=== PATIENT | male | born 1975 | race Two or more races ===

== ENCOUNTER 2020-10-18 18:17 | Inpatient (IN) | payer OTHER ==
[2020-10-18 19:18] LABS: BASO % 2.3 % (0-2.0); EOS % 0.1 % (0-4.5); HEMOGLOBIN 15.4 GM/dl (11.7-16.9); LYMPH % 10.8 % (8-40); MCHC 32.9 g/dl (32.0-35.9); MEAN CELL VOLUME 85.2 fl (80-96); MEAN PLT VOLUME 8.3 fl (7.5-11.1); MONO % 6.6 % (3.8-10.2); NEUT % 80.2 % (42.8-82.8); PLATELET COUNT 356 K/MM3 (134-434); RBC 5.51 M/mm3 (4.00-5.60); RDW 12.8 % (11.9-15.9); WHITE BLOOD COUNT 10.3 K/mm3 (4.0-10.8)
[2020-10-18] MEDS ORDERED: ACETAMINOPHEN 500 MG TABLET (FP) PO ONE (19:30)
[2020-10-18 19:32] LABS: ACTIVATED PTT 22.8 SECONDS (25.2-36.5)
[2020-10-18] MEDS ORDERED: ACETAMINOPHEN INJECTION 100 ML IVPB ONE (19:32)
[2020-10-18 19:36] LABS: INR 1.27 (0.82-1.09)
[2020-10-18 19:37] LABS: ALBUMIN 2.9 g/dl (3.4-5.0); ALK PHOS 100 U/L (45-117); ANION GAP 11 MMOL/L (8-16); BILIRUBIN,DIRECT 0.2 mg/dL (0.0-0.2); BILIRUBIN,TOTAL 1.1 mg/dl (0.2-1); CALCIUM 8.5 mg/dl (8.5-10); CHLORIDE 96 mmol/L (98-107); CO2 21 mmol/L (21-32); CREATININE 0.8 mg/dl (0.55-1.3); LDH 373 U/L (84-246); SGOT/AST 66 U/L (15-37); SGPT/ALT 117 U/L (13-61); SODIUM 128 mmol/L (136-145); TOT PROT 7.2 g/dl (6.4-8.2)
[2020-10-18 19:39] LABS: GLUCOSE,RANDOM 322 mg/dl (74-106)
[2020-10-18] MEDS ORDERED: INSULIN REGULAR HUMAN 100 UNITS/ML *VIAL IVPUSH ONE (19:39)
[2020-10-18] MEDS ORDERED: DEXAMETHASONE SOD PHOSPHATE 10 MG/1 ML VIAL IVPUSH ONE (19:46)
[2020-10-18] MEDS ORDERED: DEXAMETHASONE SOD PHOSPHATE 10 MG/1 ML VIAL ONE (19:58)
[2020-10-18] MEDS ORDERED: INSULIN REGULAR HUMAN 100 UNITS/ML *VIAL ONE (19:58)
[2020-10-18 20:45] LABS: VENOUS BASE EXCESS -3.3 mmol/L (-2-2); VENOUS O2 SATURATION 73.1 % (70-80); VENOUS PCO2 32.2 mmHg (38-52); VENOUS PH 7.415 (7.310-7.410)
[2020-10-18] MEDS ORDERED: SODIUM CHLORIDE 500 ML IV STA (23:09)
[2020-10-18 23:33] LABS: ARTERIAL BLD GAS O2 SATURATION 96.4 mmHg (95-98); ARTERIAL BLOOD GAS BASE EXCESS -4.1 mmol/L (-2-2); ARTERIAL BLOOD GAS pH 7.437 (7.350-7.450)
[2020-10-18 23:34] LABS: ALLENS TEST POSITIVE
[2020-10-19] MEDS: ENOXAPARIN NA (PORCINE) 40 MG/0.4 ML DISP.SYRIN SQ SCH ×3 (00:32→22:45)
[2020-10-19] MEDS ORDERED: MELATONIN 5 MG TABLETS PO ONE (01:01)
[2020-10-19] MEDS ORDERED: ALBUTEROL SO4 HFA INHALER IH PRN (01:59)
[2020-10-19] MEDS ORDERED: ACETAMINOPHEN 325 MG TABLET (FP) PO PRN (02:10)
[2020-10-19] MEDS: INSULIN SLIDING SCALE (NOVOLOG) 1 VIAL SQ SCH ×4 (07:27→22:56)
[2020-10-19 07:46] LABS: BASO % 0.2 % (0-2.0); HEMATOCRIT 42.6 % (35.4-49); HEMOGLOBIN 14.4 GM/dL (11.7-16.9); LYMPH % 9.8 % (8-40); MCH 28.1 pg (25.7-33.7); MCHC 33.8 g/dl (32.0-35.9); MEAN CELL VOLUME 83.2 fl (80-96); MEAN PLT VOLUME 7.8 fl (7.5-11.1); MONO % 4.8 % (3.8-10.2); NEUT % 85.2 % (42.8-82.8); PLATELET COUNT 314 K/MM3 (134-434); RBC 5.12 M/mm3 (4.00-5.60); RDW 13.3 % (11.9-15.9); WHITE BLOOD COUNT 8.8 K/mm3 (4.0-10.0)
[2020-10-19 07:59] LABS: CHLORIDE 101 mmol/L (98-107); POTASSIUM 5.2 mmol/L (3.5-5.1); SODIUM 135 mmol/L (136-145)
[2020-10-19 08:17] LABS: ALBUMIN 2.5 g/dl (3.4-5.0); ANION GAP 11 MMOL/L (8-16); CALCIUM 8.6 mg/dL (8.5-10.1); CO2 24 mmol/L (21-32)
[2020-10-19 08:18] LABS: BLOOD UREA NITROGEN 14.1 mg/dL (7-18); GLUCOSE,RANDOM 256 mg/dL (74-106); MAGNESIUM 2.5 mg/dL (1.8-2.4)
[2020-10-19 08:20] LABS: BILIRUBIN,TOTAL 0.9 mg/dL (0.2-1); CHOLESTEROL 183 mg/dL (50-200); TRIGLYCERIDES 174 mg/dL (0-150)
[2020-10-19 08:21] LABS: ALK PHOS 99 U/L (45-117); CREATININE 0.8 mg/dL (0.55-1.3); HDL CHOLESTEROL 21 mg/dL (40-60); LDH 338 U/L (87-246); LDL CHOLESTEROL (ONLY SJRH) 138 mg/dL (5-100); SGOT/AST 53 U/L (15-37); SGPT/ALT 119 U/L (13-61)
[2020-10-19 08:22] LABS: TOT PROT 7.1 g/dl (6.4-8.2)
[2020-10-19] MEDS ORDERED: DEXTROSE 5%-WATER - 50 ML IVPB ONE (09:00)
[2020-10-19] MEDS ORDERED: cefTRIAXone SODIUM 1 GM VIAL ONE (09:00)
[2020-10-19] MEDS: DEXAMETHASONE SOD PHOSPHATE 4 MG/1 ML VIAL IVPUSH SCH (09:58)
[2020-10-19] MEDS: AZITHROMYCIN IVPB 500 MG/250 ML BAG IVPB SCH (09:59)
[2020-10-19] MEDS: CEFTRIAXONE 1 GM in DEXTROSE 5%-WATER - 50 ML IVPB SCH (10:01)
[2020-10-19] MEDS: ZINC SULFATE 220 MG CAPSULE (FP) PO SCH (10:02)
[2020-10-19] MEDS: ASCORBIC ACID 500 MG TABLET (FP) PO SCH ×2 (10:02→22:45)
[2020-10-19] MEDS: FAMOTIDINE 20 MG TABLET PO SCH ×2 (10:02→22:45)
[2020-10-19 11:32] VITALS: BMI 37.8
[2020-10-19] MEDS: MUPIROCIN 2% TOPICAL OINTMENT FOR DECOLONIZATION NS SCH ×2 (12:04→22:42)
[2020-10-19] MEDS ORDERED: REMDESIVIR 200 MG in SODIUM CHLORIDE 210 ML IVPB ONE (13:00)
[2020-10-19] MEDS ORDERED: PT OWN MED DRAWER 7, Y5N ONE ×2 (13:07→22:44)
[2020-10-19] MEDS: CHLORHEXIDINE GLUCONATE 4% CLEANSER FOR DECOLONIZATION TP SCH (22:42)
[2020-10-20] MEDS: INSULIN SLIDING SCALE (NOVOLOG) 1 VIAL SQ SCH ×4 (06:46→21:36)
[2020-10-20] MEDS ORDERED: cefTRIAXone SODIUM 1 GM VIAL ONE (09:45)
[2020-10-20] MEDS ORDERED: DEXTROSE 5%-WATER - 50 ML IVPB ONE (09:45)
[2020-10-20] MEDS: MUPIROCIN 2% TOPICAL OINTMENT FOR DECOLONIZATION NS SCH ×2 (09:57→21:37)
[2020-10-20] MEDS: FAMOTIDINE 20 MG TABLET PO SCH ×2 (10:20→21:36)
[2020-10-20] MEDS: ZINC SULFATE 220 MG CAPSULE (FP) PO SCH (10:20)
[2020-10-20] MEDS: DEXAMETHASONE SOD PHOSPHATE 4 MG/1 ML VIAL IVPUSH SCH (10:20)
[2020-10-20] MEDS: ENOXAPARIN NA (PORCINE) 40 MG/0.4 ML DISP.SYRIN SQ SCH ×2 (10:20→21:35)
[2020-10-20] MEDS: CEFTRIAXONE 1 GM in DEXTROSE 5%-WATER - 50 ML IVPB SCH (10:20)
[2020-10-20] MEDS: ASCORBIC ACID 500 MG TABLET (FP) PO SCH ×2 (10:20→21:36)
[2020-10-20] MEDS: AZITHROMYCIN IVPB 500 MG/250 ML BAG IVPB SCH (10:21)
[2020-10-20] MEDS: CHOLECALCIFEROL (VIT D3) 1,000 UNIT (25 MCG) TABLET PO SCH (10:21)
[2020-10-20 11:40] LABS: BASO % 0.3 % (0-2.0); EOS % 0.1 % (0-4.5); HEMATOCRIT 40.8 % (35.4-49); HEMOGLOBIN 13.3 GM/dL (11.7-16.9); LYMPH % 8.5 % (8-40); MCH 27.4 pg (25.7-33.7); MCHC 32.5 g/dl (32.0-35.9); MEAN CELL VOLUME 84.1 fl (80-96); MONO % 6.3 % (3.8-10.2); NEUT % 84.8 % (42.8-82.8); PLATELET COUNT 355 K/MM3 (134-434); RBC 4.85 M/mm3 (4.00-5.60); RDW 13.5 % (11.9-15.9); WHITE BLOOD COUNT 11.5 K/mm3 (4.0-10.0)
[2020-10-20 12:04] LABS: POTASSIUM 4.4 mmol/L (3.5-5.1)
[2020-10-20 12:06] LABS: CALCIUM 8.4 mg/dL (8.5-10.1)
[2020-10-20 12:07] LABS: ALBUMIN 2.4 g/dl (3.4-5.0); MAGNESIUM 2.3 mg/dL (1.8-2.4)
[2020-10-20 12:10] LABS: CREATININE 0.8 mg/dL (0.55-1.3); PHOSPHOROUS 2.6 mg/dL (2.5-4.9)
[2020-10-20 12:11] LABS: BILIRUBIN,TOTAL 0.6 mg/dL (0.2-1); TOT PROT 6.6 g/dl (6.4-8.2)
[2020-10-20] MEDS ORDERED: PT OWN MED DRAWER 7, Y5N ONE (12:59)
[2020-10-20] MEDS: REMDESIVIR 100 MG in SODIUM CHLORIDE 230 ML IVPB SCH (13:13)
[2020-10-20] MEDS: CHLORHEXIDINE GLUCONATE 4% CLEANSER FOR DECOLONIZATION TP SCH (21:36)
[2020-10-20] MEDS: INSULIN (LEVEMIR) 100 UNITS/ML UNITS SQ SCH (21:36)
[2020-10-21] MEDS: INSULIN SLIDING SCALE (NOVOLOG) 1 VIAL SQ SCH ×4 (06:40→22:36)
[2020-10-21 06:47] LABS: BASO % 0.3 % (0-2.0); EOS % 0.1 % (0-4.5); HEMATOCRIT 41.1 % (35.4-49); HEMOGLOBIN 13.7 GM/dL (11.7-16.9); LYMPH % 14.9 % (8-40); MCH 27.8 pg (25.7-33.7); MCHC 33.2 g/dl (32.0-35.9); MEAN CELL VOLUME 83.7 fl (80-96); MEAN PLT VOLUME 7.6 fl (7.5-11.1); MONO % 8.3 % (3.8-10.2); NEUT % 76.4 % (42.8-82.8); PLATELET COUNT 374 K/MM3 (134-434); RBC 4.91 M/mm3 (4.00-5.60); RDW 13.5 % (11.9-15.9); WHITE BLOOD COUNT 8.9 K/mm3 (4.0-10.0)
[2020-10-21 07:20] LABS: POTASSIUM 4.7 mmol/L (3.5-5.1)
[2020-10-21 07:22] LABS: ALBUMIN 2.4 g/dl (3.4-5.0); CALCIUM 8.1 mg/dL (8.5-10.1)
[2020-10-21 07:23] LABS: BLOOD UREA NITROGEN 21.7 mg/dL (7-18); MAGNESIUM 2.3 mg/dL (1.8-2.4)
[2020-10-21 07:25] LABS: CREATININE 0.8 mg/dL (0.55-1.3)
[2020-10-21 07:27] LABS: BILIRUBIN,TOTAL 0.6 mg/dL (0.2-1); TOT PROT 6.6 g/dl (6.4-8.2)
[2020-10-21 07:46] LABS: ERYTHROCYTE SEDIMENTATION RATE 70 mm/hr (0-10)
[2020-10-21] MEDS ORDERED: cefTRIAXone SODIUM 1 GM VIAL ONE (09:29)
[2020-10-21] MEDS ORDERED: DEXTROSE 5%-WATER - 50 ML IVPB ONE (09:29)
[2020-10-21] MEDS: MUPIROCIN 2% TOPICAL OINTMENT FOR DECOLONIZATION NS SCH ×2 (09:42→22:00)
[2020-10-21] MEDS: DEXAMETHASONE SOD PHOSPHATE 4 MG/1 ML VIAL IVPUSH SCH (09:44)
[2020-10-21] MEDS: ZINC SULFATE 220 MG CAPSULE (FP) PO SCH (09:45)
[2020-10-21] MEDS: ENOXAPARIN NA (PORCINE) 40 MG/0.4 ML DISP.SYRIN SQ SCH ×2 (09:45→22:05)
[2020-10-21] MEDS: CEFTRIAXONE 1 GM in DEXTROSE 5%-WATER - 50 ML IVPB SCH (09:46)
[2020-10-21] MEDS: FAMOTIDINE 20 MG TABLET PO SCH ×2 (09:46→22:06)
[2020-10-21] MEDS: CHOLECALCIFEROL (VIT D3) 1,000 UNIT (25 MCG) TABLET PO SCH (09:48)
[2020-10-21] MEDS: ASCORBIC ACID 500 MG TABLET (FP) PO SCH ×2 (09:48→22:06)
[2020-10-21] MEDS: AZITHROMYCIN IVPB 500 MG/250 ML BAG IVPB SCH (09:49)
[2020-10-21] MEDS ORDERED: PT OWN MED DRAWER 7, Y5N ONE (12:27)
[2020-10-21] MEDS: REMDESIVIR 100 MG in SODIUM CHLORIDE 230 ML IVPB SCH (14:22)
[2020-10-21] MEDS ORDERED: INSULIN (NOVOLOG) ASPART 100 UNITS/ML 10ML VIAL ONE (21:58)
[2020-10-21] MEDS: CHLORHEXIDINE GLUCONATE 4% CLEANSER FOR DECOLONIZATION TP SCH (22:00)
[2020-10-21] MEDS: INSULIN (LEVEMIR) 100 UNITS/ML UNITS SQ SCH (22:06)
[2020-10-22] MEDS ORDERED: INSULIN (LEVEMIR) 100 UNITS/ML UNITS SQ ONE ×2 (00:27→23:45)
[2020-10-22] MEDS: INSULIN SLIDING SCALE (NOVOLOG) 1 VIAL SQ SCH ×4 (06:28→23:06)
[2020-10-22 07:58] LABS: BASO % 0.3 % (0-2.0); EOS % 0.1 % (0-4.5); HEMATOCRIT 41.7 % (35.4-49); HEMOGLOBIN 13.9 GM/dL (11.7-16.9); LYMPH % 19.9 % (8-40); MCH 27.9 pg (25.7-33.7); MCHC 33.3 g/dl (32.0-35.9); MEAN CELL VOLUME 83.7 fl (80-96); MEAN PLT VOLUME 7.7 fl (7.5-11.1); MONO % 6.6 % (3.8-10.2); NEUT % 73.1 % (42.8-82.8); PLATELET COUNT 353 K/MM3 (134-434); RBC 4.98 M/mm3 (4.00-5.60); RDW 13.6 % (11.9-15.9); WHITE BLOOD COUNT 9.1 K/mm3 (4.0-10.0)
[2020-10-22 08:19] LABS: POTASSIUM 4.3 mmol/L (3.5-5.1)
[2020-10-22 08:25] LABS: ALBUMIN 2.5 g/dl (3.4-5.0); CALCIUM 8.4 mg/dL (8.5-10.1)
[2020-10-22 08:26] LABS: MAGNESIUM 2.3 mg/dL (1.8-2.4)
[2020-10-22 08:28] LABS: BILIRUBIN,DIRECT 0.2 mg/dL (0.0-0.2); CREATININE 0.8 mg/dL (0.55-1.3)
[2020-10-22 08:30] LABS: BILIRUBIN,TOTAL 0.6 mg/dL (0.2-1); TOT PROT 6.5 g/dl (6.4-8.2)
[2020-10-22] MEDS ORDERED: DEXTROSE 5%-WATER - 50 ML IVPB ONE (09:05)
[2020-10-22] MEDS ORDERED: cefTRIAXone SODIUM 1 GM VIAL ONE (09:05)
[2020-10-22] MEDS: ZINC SULFATE 220 MG CAPSULE (FP) PO SCH (09:55)
[2020-10-22] MEDS: CEFTRIAXONE 1 GM in DEXTROSE 5%-WATER - 50 ML IVPB SCH (09:55)
[2020-10-22] MEDS: INSULIN (LEVEMIR) 100 UNITS/ML UNITS SQ SCH ×2 (09:55→23:07)
[2020-10-22] MEDS: DEXAMETHASONE SOD PHOSPHATE 4 MG/1 ML VIAL IVPUSH SCH (09:55)
[2020-10-22] MEDS: CHOLECALCIFEROL (VIT D3) 1,000 UNIT (25 MCG) TABLET PO SCH (09:55)
[2020-10-22] MEDS: ASCORBIC ACID 500 MG TABLET (FP) PO SCH ×2 (09:55→22:19)
[2020-10-22] MEDS: FAMOTIDINE 20 MG TABLET PO SCH ×2 (09:55→22:19)
[2020-10-22] MEDS ORDERED: ENOXAPARIN NA (PORCINE) 60 MG/0.6 ML DISP.SYRIN SQ SCH (10:00)
[2020-10-22] MEDS: MUPIROCIN 2% TOPICAL OINTMENT FOR DECOLONIZATION NS SCH (10:03)
[2020-10-22] MEDS ORDERED: PT OWN MED DRAWER 7, Y5N ONE ×2 (11:36→22:13)
[2020-10-22] MEDS: ENOXAPARIN NA (PORCINE) 120 MG/0.8 ML DISP.SYRIN SQ SCH ×2 (11:49→22:18)
[2020-10-22] MEDS: REMDESIVIR 100 MG in SODIUM CHLORIDE 230 ML IVPB SCH (14:39)
[2020-10-22] MEDS ORDERED: ACETAMINOPHEN 325 MG TABLET (FP) PO PRN (15:14)
[2020-10-22] MEDS ORDERED: ALBUTEROL SO4 HFA INHALER IH PRN (15:14)
[2020-10-22] MEDS ORDERED: INSULIN (LEVEMIR) 100 UNITS/ML UNITS SQ SCH (22:00)
[2020-10-22] MEDS ORDERED: MUPIROCIN 2% TOPICAL OINTMENT FOR DECOLONIZATION NS SCH (22:00)
[2020-10-22] MEDS ORDERED: CHLORHEXIDINE GLUCONATE 4% CLEANSER FOR DECOLONIZATION TP SCH (22:00)
[2020-10-23 07:00] LABS: BASO % 0.3 % (0-2.0); EOS % 0.2 % (0-4.5); HEMATOCRIT 41.7 % (35.4-49); HEMOGLOBIN 13.9 GM/dL (11.7-16.9); MCH 28.1 pg (25.7-33.7); MCHC 33.3 g/dl (32.0-35.9); MEAN CELL VOLUME 84.2 fl (80-96); MEAN PLT VOLUME 7.8 fl (7.5-11.1); MONO % 5.3 % (3.8-10.2); NEUT % 66.2 % (42.8-82.8); PLATELET COUNT 331 K/MM3 (134-434); RBC 4.96 M/mm3 (4.00-5.60); RDW 13.6 % (11.9-15.9); WHITE BLOOD COUNT 9.6 K/mm3 (4.0-10.0)
[2020-10-23 07:23] LABS: POTASSIUM 4.2 mmol/L (3.5-5.1)
[2020-10-23] MEDS: INSULIN SLIDING SCALE (NOVOLOG) 1 VIAL SQ SCH ×2 (07:24→12:05)
[2020-10-23 07:46] LABS: CALCIUM 8.5 mg/dL (8.5-10.1)
[2020-10-23 07:47] LABS: ALBUMIN 2.6 g/dl (3.4-5.0); BLOOD UREA NITROGEN 22.5 mg/dL (7-18); MAGNESIUM 2.3 mg/dL (1.8-2.4)
[2020-10-23 07:50] LABS: CREATININE 0.7 mg/dL (0.55-1.3); PHOSPHOROUS 4.2 mg/dL (2.5-4.9)
[2020-10-23 07:51] LABS: BILIRUBIN,TOTAL 0.6 mg/dL (0.2-1); TOT PROT 6.4 g/dl (6.4-8.2)
[2020-10-23] MEDS ORDERED: DEXTROSE 5%-WATER - 50 ML IVPB ONE (08:49)
[2020-10-23] MEDS ORDERED: cefTRIAXone SODIUM 1 GM VIAL ONE (08:49)
[2020-10-23 08:59] LABS: ERYTHROCYTE SEDIMENTATION RATE 46 mm/hr (0-10)
[2020-10-23] MEDS ORDERED: INSULIN (LEVEMIR) 100 UNITS/ML UNITS SQ SCH (10:00)
[2020-10-23] MEDS ORDERED: DEXAMETHASONE SOD PHOSPHATE 4 MG/1 ML VIAL IVPUSH SCH (10:00)
[2020-10-23] MEDS ORDERED: ZINC SULFATE 220 MG CAPSULE (FP) PO SCH (10:00)
[2020-10-23] MEDS ORDERED: CEFTRIAXONE 1 GM in DEXTROSE 5%-WATER - 50 ML IVPB SCH (10:00)
[2020-10-23] MEDS: CHOLECALCIFEROL (VIT D3) 1,000 UNIT (25 MCG) TABLET PO SCH (10:21)
[2020-10-23] MEDS: FAMOTIDINE 20 MG TABLET PO SCH (10:21)
[2020-10-23] MEDS: ASCORBIC ACID 500 MG TABLET (FP) PO SCH (10:21)
[2020-10-23] MEDS ORDERED: PT OWN MED DRAWER 7, Y5N ONE (11:56)
[2020-10-23] MEDS: ENOXAPARIN NA (PORCINE) 120 MG/0.8 ML DISP.SYRIN SQ SCH (12:05)
[2020-10-23] MEDS ORDERED: REMDESIVIR 100 MG in SODIUM CHLORIDE 230 ML IVPB SCH (13:00)
[2020-10-23 16:15] VITALS: BP 111/74; PULSE 95; TEMP 98.6
[2020-10-23 17:34] LABS: POTASSIUM 4.8 mmol/L (3.5-5.1)
[2020-10-23 17:36] LABS: CALCIUM 8.6 mg/dL (8.5-10.1)
[2020-10-23 17:37] LABS: ALBUMIN 2.8 g/dl (3.4-5.0); BLOOD UREA NITROGEN 23.1 mg/dL (7-18)
[2020-10-23 17:40] LABS: CREATININE 0.8 mg/dL (0.55-1.3)
[2020-10-23 17:42] LABS: BILIRUBIN,TOTAL 0.5 mg/dL (0.2-1); TOT PROT 7.1 g/dl (6.4-8.2)
== END 2020-10-23 18:04 | disposition home or self-care (01) | DRG 137 ==
LOC: FER 18:17 → JICU 21:39 → J4W 10-20 21:27
PROVIDERS: ADMIT Internal Medicine; ATTEND Student in an Organized Health Care Education/Training Program
PROC: XW033E5 Introduction of Remdesivir Anti-infective into Peripheral Vein, Percutaneous Approach, New Technology Group 5 (ICD-10-PCS; principal; 2020-10-18)
PROC: XW13325 Transfusion of Convalescent Plasma (Nonautologous) into Peripheral Vein, Percutaneous Approach, New Technology Group 5 (ICD-10-PCS; 2020-10-18)
PROC: 5A0935Z Assistance with Respiratory Ventilation, Less than 24 Consecutive Hours (ICD-10-PCS; 2020-10-18)
DX: U07.1 COVID-19 (principal); J96.01 Acute respiratory failure with hypoxia; J12.89 Other viral pneumonia; E87.1 Hypo-osmolality and hyponatremia; E11.9 Type 2 diabetes mellitus without complications
CPT/HCPCS: 36415; 36430; 36600; 71045-TC-FY; 80048; 80053; 80061; 80076; 81003; 81015; 82248; 82550; 82553; 82728; 82803; 82962; 83036; 83605; 83615; 83721; 83735; 84100; 84484; 85025; 85379; 85610; 85651; 85730; 86140; 86850; 86900; 86901; 87040; 87086; 93005; 94761; 99285-25; C9399; C9803; J1100; P9017; U0003

== ENCOUNTER 2021-02-12 16:19 | Emergency (ER) | payer OTHER ==
[2021-02-12 16:33] VITALS: BP 161/100; PULSE 103; BMI 40.7
[2021-02-12 17:46] LABS: BASO % 0.3 % (0-2.0); HEMATOCRIT 44.2 % (35.4-49); HEMOGLOBIN 14.7 GM/dL (11.7-16.9); MCH 27.7 pg (25.7-33.7); MCHC 33.4 g/dl (32.0-35.9); MEAN PLT VOLUME 8.1 fl (7.5-11.1); MONO % 7.7 % (3.8-10.2); PLATELET COUNT 204 K/MM3 (134-434); RBC 5.33 M/mm3 (4.00-5.60); RDW 14.4 % (11.9-15.9); WHITE BLOOD COUNT 7.5 K/mm3 (4.0-10.0)
[2021-02-12 17:57] LABS: CHLORIDE 106 mmol/L (98-107); SODIUM 138 mmol/L (136-145)
[2021-02-12 17:59] LABS: ANION GAP 5 MMOL/L (8-16); BLOOD UREA NITROGEN 10.4 mg/dL (7-18); CALCIUM 9.5 mg/dL (8.5-10.1); CO2 27 mmol/L (21-32)
[2021-02-12 18:00] LABS: ALBUMIN 3.6 g/dl (3.4-5.0); GLUCOSE,RANDOM 128 mg/dL (74-106)
[2021-02-12 18:03] LABS: CREATININE 0.9 mg/dL (0.55-1.3); SGOT/AST 29 U/L (15-37); SGPT/ALT 53 U/L (13-61)
[2021-02-12 18:04] LABS: BILIRUBIN,TOTAL 0.7 mg/dL (0.2-1); TOT PROT 7.6 g/dl (6.4-8.2)
[2021-02-12 18:05] LABS: ALK PHOS 111 U/L (45-117)
== END 2021-02-12 18:37 | disposition home or self-care (01) ==
LOC: JER 16:19
DX: R07.9 Chest pain, unspecified (principal)
CPT/HCPCS: 36415; 71046-TC-FY; 80053; 84443; 84484; 85025; 93005; 93010; 99285-25

== ENCOUNTER 2021-03-08 01:15 | Observation (INO) | payer OTHER ==
[2021-03-08 01:54] VITALS: BMI 41.9
[2021-03-08] MEDS ORDERED: ACETAMINOPHEN 325 MG TABLET (FP) PO ONE (02:11)
[2021-03-08] MEDS ORDERED: ACETAMINOPHEN 325 MG TABLET (FP) ONE (02:19)
[2021-03-08 02:45] LABS: BASO % 0.6 % (0-2.0); EOS % 1.1 % (0-4.5); HEMOGLOBIN 14.7 GM/dL (11.7-16.9); LYMPH % 26.2 % (8-40); MCH 28.2 pg (25.7-33.7); MCHC 34.1 g/dl (32.0-35.9); MEAN CELL VOLUME 82.5 fl (80-96); MEAN PLT VOLUME 7.8 fl (7.5-11.1); MONO % 7.4 % (3.8-10.2); NEUT % 64.7 % (42.8-82.8); PLATELET COUNT 207 K/MM3 (134-434); RBC 5.21 M/mm3 (4.00-5.60); RDW 14.4 % (11.9-15.9); WHITE BLOOD COUNT 7.8 K/mm3 (4.0-10.0)
[2021-03-08 03:01] LABS: CHLORIDE 106 mmol/L (98-107); SODIUM 138 mmol/L (136-145)
[2021-03-08 03:03] LABS: BLOOD UREA NITROGEN 13.2 mg/dL (7-18); CALCIUM 9.2 mg/dL (8.5-10.1); LIPASE 172 U/L (73-393)
[2021-03-08 03:04] LABS: ANION GAP 5 MMOL/L (8-16); CO2 28 mmol/L (21-32); GLUCOSE,RANDOM 87 mg/dL (74-106)
[2021-03-08 03:06] LABS: SGOT/AST 42 U/L (15-37); SGPT/ALT 60 U/L (13-61)
[2021-03-08 03:07] LABS: CREATININE 0.8 mg/dL (0.55-1.3)
[2021-03-08 03:08] LABS: BILIRUBIN,TOTAL 0.7 mg/dL (0.2-1)
[2021-03-08 03:09] LABS: ALK PHOS 114 U/L (45-117)
[2021-03-08] MEDS ORDERED: LOSARTAN POTASSIUM 50 MG TABLET ONE (09:23)
[2021-03-08] MEDS ORDERED: LOSARTAN POTASSIUM 50 MG TABLET PO SCH (10:00)
[2021-03-08] MEDS ORDERED: metFORMIN HCL 500 MG TABLET (FP) PO ONE (12:26)
[2021-03-08] MEDS ORDERED: GLIMEPIRIDE 4 MG TABLET PO ONE (12:26)
[2021-03-08] MEDS ORDERED: metFORMIN HCL 500 MG TABLET (FP) ONE (12:29)
[2021-03-08] MEDS ORDERED: GLIMEPIRIDE 4 MG TABLET PO SCH (12:45)
[2021-03-08] MEDS ORDERED: metFORMIN HCL 500 MG TABLET (FP) PO SCH (13:00)
[2021-03-08 14:52] VITALS: BP 116/85; PULSE 76; TEMP 98
[2021-03-08] MEDS ORDERED: ATORVASTATIN CA 20 MG TABLET (FP) PO SCH (22:00)
[2021-03-09] MEDS ORDERED: metFORMIN HCL 500 MG TABLET (FP) PO SCH (07:00)
== END 2021-03-08 15:00 | disposition home or self-care (01) ==
LOC: JER 01:15 → JERBED 04:57
PROVIDERS: ADMIT Internal Medicine; ATTEND Internal Medicine
DX: R00.0 Tachycardia, unspecified (principal); I10 Essential (primary) hypertension; E78.5 Hyperlipidemia, unspecified; E11.9 Type 2 diabetes mellitus without complications; E66.01 Morbid (severe) obesity due to excess calories; R00.2 Palpitations; Z68.41 Body mass index [BMI] 40.0-44.9, adult; R07.9 Chest pain, unspecified; Z86.16 Personal history of COVID-19
CPT/HCPCS: 36415; 71045-TC-FY; 78452-TC; 80053; 83690; 83880; 84484; 85025; 93005; 93010; 93017; 99285-25; A9502; C1887; C9803; G0378; U0003; U0005

== ENCOUNTER 2023-04-16 11:10 | Emergency (ER) | payer OTHER ==
[2023-04-16 11:24] VITALS: BP 167/95; PULSE 70; RESP 17; TEMP 98.7; BMI 43.3
[2023-04-16] MEDS ORDERED: IBUPROFEN 600 MG TABLET (FP) PO ONE ×2 (11:47→11:48)
== END 2023-04-16 12:05 | disposition home or self-care (01) ==
LOC: JERFT 11:10
DX: K08.89 Other specified disorders of teeth and supporting structures (principal); K02.9 Dental caries, unspecified
CPT/HCPCS: 99282-25